=== PATIENT | female | born 1995 | race Caucasian/White ===

== ENCOUNTER 2018-04-06 11:28 | Emergency (ER) | payer OTHER ==
[~2018-04-06] VITALS: Ht 162.6 cm; Wt 65.8 kg
--- OUTSIDE RECORDS SUMMARY | ~2018-04-06 | XMS | Clinical Summary ---
Demographics + + + | Address | [address] | | | [place] [address] | + + + | Home Phone | | + + + | Preferred Language | Unknown | + + + | Marital Status | Single | + + + | Baptism Affiliation | Unknown | + + + | Race | Unknown | + + + | Ethnic Group | Unknown | + + + Author + + + | Author | [facility] | | | and [place] | + + + | Organization | [facility] | | | and [place] | + + + | Address | Unknown | + + + | Phone | Unavailable | + + + Support + + +---------+ + | Name | Relationship | Address | Phone | + + +---------+ + | Nelli Courtney | ECON | Unknown | | + + +---------+ + Care Team Providers + +------+ + | Care Door Clamper Name | Role | Phone | + +------+ + PP | Unavailable | + +------+ + Allergies Not on File Current Medications Not on file Active Problems Not on file Social History + +-------+ +--------+------+ | Tobacco Use | Types | Packs/Day | Years | Date | | | | | Used | | + +-------+ +--------+------+ | Never Assessed | | | | | + +-------+ +--------+------+ + + + | Sex Assigned at | Date Recorded | | | | + + + | Not on file | | + + + Plan of Treatment + + + + + | Health Maintenance | Due Date | Last Done | Comments | + + + + + | Vaccine: HPV (1 of 3 | | | | | - Female 3-dose | 6 | | | | series) | | | | + + + + + | Vaccine: | | | | | Dtap/Tdap/Td (1 - | 4 | | | | Tdap) | | | | + + + + + | Cervical Cancer | | | | | Screening (Pap) | 6 | | | + + + + + | Vaccine: Influenza | | | | | (#1) | 8 | | | + + + + + Results Not on filefrom Last 3 Months"
--- OUTSIDE RECORDS SUMMARY | ~2018-04-06 | XMS | Clinical Summary ---
Demographics + + + | Address | [address] | | | [place] [address] | + + + | Home Phone | | + + + | Preferred Language | Unknown | + + + | Marital Status | Single | + + + | Mu-Ism Affiliation | Unknown | + + + | Race | Unknown | + + + | Ethnic Group | Unknown | + + + Author + + + | Author | [facility] | | | and [place] | + + + | Organization | [facility] | | | and [...] Team Providers + +------+ + | Care Front Man Name | Role | Phone | + [...]
[~2018-04-06 11:28] MED LIST: MACROBID 100 M100 MG PO
== END 2018-04-06 11:40 | disposition home or self-care (01) ==
LOC: ED 11:28
DX: M25.572 Pain in left ankle and joints of left foot (principal)

== ENCOUNTER 2019-06-29 09:24 | Emergency (ER) | payer OTHER ==
[~2019-06-29] VITALS: Ht 160 cm; Wt 53.1 kg
[~2019-06-29 09:24] MED LIST changes: +CIPRO500 MG PO; +IBUPROFEN600 MG PO; +MIRALAX17 GM PO
--- OUTSIDE RECORDS SUMMARY | 2019-06-29 09:26 | XMS ---
PreManage Notification: JOYCE KNUTSON Security Ob/Gyn Events No recent Security Events currently on file CRITERIA MET - [facility] - Has Care Guidelines CARE PROVIDERS Theo Woods Internal Medicine: Pulmonary Disease 08/07/2018-Current PHONE: Unknown RENATA LEE Nurse Practitioner: Women's Health 03/12/2019-Current PHONE: [phone] Guidelines Source: [facility] Guidelines Date: 03/09/2019 Care Coordination: Mental health services are being provided by [facility].\T\nbsp; Please contact [facility] with mental health concerns.\T\nbsp; Kya/Joseph Carroll: \T\nbsp; Wilber: [phone]. Care History Medical/Surgical 08/07/2018 [facility] - Patient is currently established with [facility]. If patient is seen in the ED during business hours. Please contact CHWs at [facility]. Care Recommendation: This patient has had 5 or more Emergency Department visits in the last 12 months.\T\nbsp; Patient requires education on the scope and purpose of the ED as an acute care provider not a Primary Care Provider and should not be utilized for chronic conditions.\T\nbsp; These are guidelines and the provider should exercise clinical judgment when providing care. E.D. VISIT COUNT (12 MO.) 4 EDILSON Peters TOTAL 4 NOTE: Visits indicate total known visits. ED/UCC VISIT TRACKING (12 MO.) 06/29/2019 09:24 [facility] [place] TYPE: Emergency COMPLAINT: - RIGHT ELBOW PAIN/INJURY 03/09/2019 10:04 [facility] [place] TYPE: Emergency COMPLAINT: - LOWER LT DENTAL PAIN - MSE TO CLINIC DIAGNOSES: - Other specified disorders of teeth and supporting structures 08/06/2018 11:17 [facility] [place] TYPE: Emergency COMPLAINT: - POSS APPENDICITIS DIAGNOSES: - Other halfway (current) drug therapy - Allergy status to penicillin - Nicotine dependence, unspecified, uncomplicated - Unspecified abdominal pain 08/04/2018 17:03 [facility] [place] TYPE: Emergency COMPLAINT: - POSS KIDNEY INFECTION DIAGNOSES: - Nicotine dependence, unspecified, uncomplicated - Allergy status to penicillin - Tubulo-interstitial nephritis, 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
[2019-06-29] MEDS ORDERED: NEXPLANON68 MG SUB-Q (09:34)
== END 2019-06-29 11:40 | disposition home or self-care (01) ==
LOC: ED 09:24
DX: M25.521 Pain in right elbow (principal); F17.200 Nicotine dependence, unspecified, uncomplicated; Z88.0 Allergy status to penicillin
CPT/HCPCS: 73080; 99283-25; A9270

== ENCOUNTER 2019-07-02 17:18 | Emergency (ER) | payer OTHER ==
[~2019-07-02] VITALS: Ht 160 cm; Wt 56.7 kg
[~2019-07-02 17:18] MED LIST changes: +NEXPLANON68 MG SUB-Q
--- OUTSIDE RECORDS SUMMARY | 2019-07-02 17:20 | XMS ---
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 No recent Security Events currently on file CRITERIA MET - [facility] - Has Care Guidelines - [facility] - 2 Visits in 30 Days CARE PROVIDERS Theo Woods Internal Medicine: Pulmonary Disease 08/07/2018-Current PHONE: Unknown RENATA LEE Nurse Practitioner: Women's Health 03/12/2019-Current PHONE: [phone] Guidelines Source: [email or web address] Guidelines Date: 03/09/2019 Care Coordination: Mental health services are being provided by [email or web address].\T\nbsp; Please contact [email or web address] with mental health concerns.\T\nbsp; Kya/Joseph Carroll: \T\nbsp; Wilber: [phone]. Care History Medical/Surgical 08/07/2018 [facility] - Patient is currently established with [facility]. If patient is seen in the ED during business hours. Please contact CHWs at [facility]. Care Recommendation: This patient has had 5 [...] providing care. E.D. VISIT COUNT (12 MO.) 5 EDILSON Peters TOTAL 5 NOTE: Visits indicate total known visits. ED/UCC VISIT TRACKING (12 MO.) 07/02/2019 17:19 [facility] [place] TYPE: Emergency COMPLAINT: - RIGHT ELBOW PAIN, INJ 06/29/2019 09:24 [facility] [place] TYPE: Emergency COMPLAINT: - RIGHT ELBOW PAIN/INJURY DIAGNOSES: - Nicotine dependence, unspecified, uncomplicated - Pain in right elbow - Pain in right elbow - Allergy status to penicillin 03/09/2019 10:04 [facility] [place] TYPE: Emergency COMPLAINT: - LOWER LT DENTAL PAIN - MSE TO CLINIC DIAGNOSES: - Other specified disorders of teeth and supporting structures 08/06/2018 11:17 [facility] [place] TYPE: Emergency COMPLAINT: - POSS APPENDICITIS DIAGNOSES: - Other detention (current) drug therapy - Allergy status to [...] visits to display in this time frame [email or web address]
== END 2019-07-02 19:15 | disposition home or self-care (01) ==
LOC: ED 17:18
DX: S50.01XA Contusion of right elbow, initial encounter (principal); W22.8XXA Striking against or struck by other objects, initial encounter; F17.200 Nicotine dependence, unspecified, uncomplicated; Z88.0 Allergy status to penicillin; Z79.899 Other long term (current) drug therapy
CPT/HCPCS: 73080; 99283-25

== ENCOUNTER 2019-07-15 15:57 | Emergency (ER) | payer OTHER ==
[~2019-07-15] VITALS: Ht 160 cm; Wt 55.8 kg
--- OUTSIDE RECORDS SUMMARY | 2019-07-15 16:00 | XMS ---
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 Events No recent Security Events currently on file CRITERIA MET - [facility] - Has Care Guidelines - [facility] - 2 Visits in 30 Days CARE PROVIDERS Theo Woods Internal Medicine: Pulmonary Disease 08/07/2018-Current PHONE: Unknown RENATA LEE Nurse Practitioner: Women's Health 03/12/2019-Current PHONE: [phone] Guidelines Source: [facility] Guidelines Date: 03/09/2019 Care Coordination: Mental health services are being provided by [facility].\T\nbsp; Please contact [facility] with mental health concerns.\T\nbsp; Kya/Joseph Carroll: [phone]\T\nbsp; Wilber: [phone]. Care History Medical/Surgical 08/07/2018 [facility] - Patient is currently established with [facility]. If patient is seen in the ED during business hours. Please contact CHWs at [facility]. Care Recommendation: This patient has had 5 [...] providing care. E.D. VISIT COUNT (12 MO.) 6 EDILSON Peters TOTAL 6 NOTE: Visits indicate total known visits. ED/UCC VISIT TRACKING (12 MO.) 07/15/2019 15:58 [facility] [place] TYPE: Emergency COMPLAINT: - LOWER BACK PAIN, NON INJ 07/02/2019 17:19 [facility] [place] TYPE: Emergency COMPLAINT: - RIGHT ELBOW PAIN, INJ DIAGNOSES: - Allergy status to penicillin - Nicotine dependence, unspecified, uncomplicated - Striking against or struck by other objects, init encntr - Other terminal superintendent (current) drug therapy - Contusion of right elbow, initial encounter - Pain in right elbow 06/29/2019 09:24 [facility] [place] TYPE: Emergency [...] COMPLAINT: - POSS APPENDICITIS DIAGNOSES: - Other terminal superintendent (current) drug therapy - Allergy status to [...] visits to display in this time frame [email or web address]
== END 2019-07-15 16:16 | disposition home or self-care (01) ==
LOC: ED 15:57
DX: M54.5 Low back pain (principal)

== ENCOUNTER 2019-08-29 11:50 | Observation (INO) | payer OTHER ==
[~2019-08-29] VITALS: Ht 160 cm; Wt 50.9 kg
--- OUTSIDE RECORDS SUMMARY | 2019-08-29 11:52 | XMS ---
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 Care History Medical/Surgical 08/07/[address] [facility] - Patient is currently established [...] known visits. ED/UCC VISIT TRACKING (12 MO.) 08/29/2019 11:50 [facility] [place] TYPE: Emergency COMPLAINT: - ABD PAIN 07/15/2019 15:58 [facility] [place] TYPE: Emergency COMPLAINT: - LOWER BACK PAIN, NON INJ. MSE TO CLINIC DIAGNOSES: - Low back pain 07/02/2019 17:19 [facility] [place] TYPE: Emergency COMPLAINT: - RIGHT ELBOW PAIN, INJ DIAGNOSES: - Allergy status to penicillin - Nicotine dependence, unspecified, uncomplicated - Striking against or struck by other objects, init encntr - Other rn long term care (current) drug therapy - Contusion of right [...] specified disorders of teeth and supporting structures INPATIENT VISIT TRACKING (12 MO.) No inpatient visits to display in this time frame [email or web address]
--- NOTE | 2019-08-29 16:30 | NUR ---
Spoke with Marina. She is in for abd pain and saw Dr. Scruggs in the ER. States she will have her appendics out tomorrow. She is a mom of 3 small children, boyfriend Roberth, and mom Nelli are in the room. Pt. and boyfriend work at [employer] and have been on their 2 week holiday layoff. She is having financial issues and uses the food bank. Discussed second [employer] bank in town which she was not aware of. States she is getting an eviction notice and is having difficulty paying her utilities. Information given for [facility]. Gave her Rani Johnson's name and let her know I would place a referral for her for SDOC issues. Pt plans on going home with boyfriend when improved.
--- NOTE | 2019-08-29 16:42 | NUR ---
PATIENT ADMITTED TO MED SURG. IVF AND ABX INFUSING. PATIENT GIVEN 0.5MG OF IV DILAUDID FOR 6/10 RLQ/RFLANK PAIN. FAMILY IN ROOM WITH PATIENT.
--- NOTE | 2019-08-29 17:01 | NUR ---
CALL TO DR. GAVIRIA SO PATIENT CAN HAVE NICOTINE PATCH. DR. GAVIRIA WILL COME SEE PATIENT KIMBERLI.
--- NOTE | 2019-08-29 17:47 | NUR ---
PATIENT UP TO BATHROOM TO VOID, DOING PRESURGICAL WIPE DOWN.
--- NOTE | 2019-08-29 18:00 | NUR ---
PATIENT RESTING IN BED. VITAL SIGNS AND I&O DONE. CALL LIGHT WITHIN REACH.N O OTHER NEEDS AT THIS TIME
--- NOTE | 2019-08-29 19:44 | NUR ---
OVERCOILER HERE TO TAKE PT. PT WALKED TO BED, NO C/O PAIN. ABX PRACTICE DIRECTOR TO OR HANGING. CONSENT SIGNED
--- NOTE | 2019-08-29 21:06 | NUR ---
08/29/192105 Mary Mercado 2100: PT ARRIVES TO PACU WITH EYES CLOSED ON 6L O2 VIA MASK. RESP EVEN AND UNLABORED, REQUIRES SLIGHT CHIN TILT.
--- NOTE | 2019-08-29 21:57 | NUR ---
back to room from pacu, awake, painful abd area, 4 abd lap sites inplace, scds inplace
--- NOTE | 2019-08-29 22:20 | NUR ---
Pt returned to floor at 2150, awake, CPOX in place. Medicated w Dilaudid 0.6mg IV c/o 02/28 abd pain. [address] Pt had a lap appy and lap liliana. CDB encouraged. Pt tolerated ice and sipa of water. Repositined in bed. IVf rate decreased to 75ml/hr. significant other at bedside, abd with faint bowel tones
--- NOTE | 2019-08-29 22:59 | NUR ---
AWAKE, 2-3/10 ABD PAIN, RELIEF STATED. LAYING ON L SIDE, ABD LAP SITES WITH OLD DRAINAGE, ALEXANDRU. WATCHING TV, AWARE OF DUE TO VOID, DECLINES NEED TO VOID AT THIS TIME. SIGNIFICANT OTHER IN ROOM
--- NOTE | 2019-08-30 00:15 | NUR ---
coop with assessment, denies passing gas, abd hypoactive bowel tones, not void yet, tolerating fluids and ice chips, jelow, applesauce and crackers given, no n.v. c/o 02/28 abd pain, medicated with Dilaudid 0.5mg IV
--- NOTE | 2019-08-30 01:10 | NUR ---
V/S AND I&O TAKEN AND RECORDED. PATIENT WENT TO THE BATHROOM ASSISTED BY PRIMARY RN YI. PATIENT VOIDED 200ML.
--- NOTE | 2019-08-30 02:00 | NUR ---
resting, eyes closed, no c/o pain or s/sx distress, on room air, CPOX in place IVF infusing, turns self in bed, call ligth at bedside
--- NOTE | 2019-08-30 04:17 | NUR ---
Up to br with help, voided QS yellow urine, tolerated well, back to bed. IVF infusing, stated she burp, abd ss with old drainage, c/o 9/10 pain,medicated with Hydrocode 1 tab, repositions self in bed, SCDS were placed on earlier off again at her requests, CPOX in place, sats 100%, P71. tolerating crackers and jello
--- NOTE | 2019-08-30 05:47 | NUR ---
Pt had a lap liliana and lap appy. 4 ss lap sites with old drainage in place, pat, stated she did burp a couple times, denies passing rectal gas. And tender. Has been medicated with Dilaudid IV X2, Ibuprofen X1, HydrocodoneX1 with good pain relief. No n/v. Tolerating jellow, fluids. ice chips and crackers. Up to br X2, voiding QS. SBA/FWW. Cooperative. COPX in place. Significant other in room
--- NOTE | 2019-08-30 07:24 | NUR ---
0718: Report received from Christina LYNCH. Pt sleeping, call castillo within reach.
--- NOTE | 2019-08-30 08:16 | NUR ---
PATIENT UP TO VOID WITH SBA, X2 NORCO GIVEN FOR 9/10 ABD PAIN.
--- NOTE | 2019-08-30 08:17 | NUR ---
Patient was awake Ambulated to the bathroom, with standby Assist.breakfast was ordered, family in room . call light in reach fresh water given.
--- NOTE | 2019-08-30 08:37 | NUR ---
PT RESTING IN HER BED AND STATES SHE HAS 7/10 ABD PAIN THAT WAS JUST RECENTLY TREATED AND SHE STATES SHE BELIVES HER PAIN WILL COME DOWN SHORTLY. ABD SURGICAL SITES ALL APPEAR HEALTHY WITH STERI-STRIPS IN PLACE AND TWO OF THEM HAVE GAUZE AND TAPE COVERING. SCD'S ON AND RUNNING, CALL WALLACE WITHIN REACH. DR GAVIRIA TO THE BEDSIDE AT THIS TIME CHECKING IN ON THE PT.
--- NOTE | 2019-08-30 09:22 | NUR ---
CHW MET WITH PATIENT-PATIENT WAS SITTING UP EATING BREAKFAST WITH HER BOYFRIEND IN THE ROOM. CHW PROVIDED PATIENT WITH FOOD BANK RESOURCES IN THE AREA AND EXPRESSED THAT THE LOCAL [place]ES IN TOWN PROVIDE FOOD WELL. CHW PROVIDED [employer]UD "SECTION 8" HOUSING APPLICATION-PATIENT STATED SHE IS ALREADY ON THE WAITING LIST AND WAS PUT BACK ON IT 7 MONTHS AGO BECAUSE SHE COULDNT FIND A HOUSE BEFORE IN TIME. CHW PROVIDED [facility] MOVING FORWARD PROGRAM INFORMATION AND MENTIONED [facility] DOES ACCEPT APPLICATIONS BUT THERE IS A WAITING LIST. PATIENT STATED SHE WAS SATISFIED WITH THE RESOURCE INFORMATION AND STATED SHE HAD NO FURTHER QUESTIONS. CHW PROVIDED CONTACT [employer] FOR FUTURE CONTACT.
--- NOTE | 2019-08-30 09:59 | NUR ---
PT AMBULATED IN THE HALLS AND IS NOW BACK IN HER BED. PT NOW STATES HER PAIN IS UP TO AN 8/10, PT MEDICATED ORDERED. SEE EMAR. PT DENIES ANY OTHER PROBLEMS.
[2019-08-30] MEDS ORDERED: ONDANSETRON ODT4 MG PO (10:30)
[2019-08-30] MEDS ORDERED: IBU-200200 MG PO (10:30)
--- NOTE | 2019-08-30 10:31 | NUR ---
MED REC COMPLETE
--- NOTE | 2019-08-30 11:39 | NUR ---
Pt resting in her bed and states she is doing "okay". She continues to deny any problems or nausea after having eaten 70% of her breakfast.
--- NOTE | 2019-08-30 12:30 | NUR ---
Upon checking in on the pt she was lying in bed and grimicing. She states she was not doing anything and the pain increased to an 8. She is now resting and has ice in place and was medicated for pain. See emar.
--- NOTE | 2019-08-30 13:36 | NUR ---
Pt states her abd pain level is a 7/10, see emar. Pt states she had some nausea following eating about 20 percent of her lunch and stopped eating. She denies any nausea at this time. Incision sites appear unchanged.
--- NOTE | 2019-08-30 13:39 | NUR ---
Pt now states she will wait on pain medication once she was told that it will be a few hours before anything else can be given if she takes it now. Will continue to monitor.
--- NOTE | 2019-08-30 14:44 | NUR ---
Pt resting in her bed and is on her phone at this time. She states she is doing well at this time and that her pain is controled.
--- NOTE | 2019-08-30 15:29 | NUR ---
Pt called and states her pain in her abd is a 10. Pt medicated as ordered, ice remains in place.
--- NOTE | 2019-08-30 15:53 | NUR ---
TALKED WITH PT AND HER SIGN OTHER ABOUT HER DX, SHE STATES SHE UNDERSTANDS ABOUT HER PROCEDURE. WE TALKED ABOUT THE PAIN SCALE AND SPLINTING HER ABD WHEN SHE SNEEZES, BURPS OR GETS UP OR DOWN. SHE STATED THAT WOULD BE VERY HELPFUL. PT STATES UNDERSTANDING OF DX. PT DENIES OTHER QUESTIONS OR CONCERNS. WE TALKED ABOUT MAKING THE TRANSITION OF CARE FROM HOSPITAL TO HOME A SAFE AND SUCESSFUL ONE. SHE STATES UNDERSTANDING OF HER MEDS AND SIDE EFFECTS.
--- NOTE | 2019-08-30 16:15 | NUR ---
Pt now states her pain is a 4-5 while at rest but increases with movement or deep breathing. She states her pain is tolerable at this time.
--- NOTE | 2019-08-30 17:01 | NUR ---
DR GAVIRIA TO THE ROOM AND WAS CHECKING IN ON THE PT AND SEEING HOW SHE IS DOING.
--- NOTE | 2019-08-30 17:21 | NUR ---
Pt now ambulating in the halls with her SO.
--- NOTE | 2019-08-30 17:27 | CONS ---
[facility] [address] [place], [place] [address] Signed DATE OF CONSULTATION: 08/29/2019 CONSULTING PHYSICIAN: Reynaldo Gaviria MD. REQUESTING PHYSICIAN: Dr. Kim. PROBLEM: Chronic abdominal pain, known fecalith, right-sided abdominal pain, and progressive weight loss. 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 She has had poor appetite and oral intake over the past several months, having lost that count in an aggregate about 15 to 20 pounds. She saw Shilpa Lee, nurse practitioner, in July and given her symptoms, underwent abdomen CT which showed no sign of nephrolithiasis, which did likely demonstrate a fecalith. There is no sign of acute appendicitis on that study. I have reviewed it myself. The patient has presented to the emergency room and evaluated by Dr. Kim with right-sided abdominal pain without associated nausea or vomiting. Concomitantly, she notes episodic severe "heartburn." She denies any specific right upper abdominal or right subscapular pain. She has had poor enough appetite since she has had weight loss as previously noted and if she "gets stoned" and smoking marijuana, her appetite can rise enough that she will have oral intake. She has no associated dysphagia or hematemesis. PAST MEDICAL HISTORY: Significant for childbirth x3. She has not had surgery in the past. Her current pain is in the right mid abdomen slightly above McBurney point and below the right subcostal area. The patient has been on a Norplant type control method, which is recently expiring. Indeed, she started her menstrual period today. Lab studies ordered in the ER are still pending. Electronically Signed By: REYNALDO GAVIRIA MD 08/30/19 1727 PATIENT NAME: JOYCE KNUTSON CONSULTATION DATE OF : [birth year] REPORT #: [id number] PHYSICIAN: REYNALDO GAVIRIA MD PCP: SHILPA LEE REPORT IS CONFIDENTIAL AND NOT TO BE RELEASED WITHOUT AUTHORIZATION [facility] [address] [place], [place] [address] Signed PHYSICAL EXAMINATION: GENERAL: She is a relatively thin white woman, who does not look systemically toxic at this time. HEENT: Trachea is midline. CHEST: Shows normal respiratory excursion. There is no tachypnea. Pulses regular. ABDOMEN: Flat. She is quite thinner than normal. Palpation shows some tenderness in McBurney point and cephalad to it. There was no specific right subcostal tenderness. EXTREMITIES: Show no clubbing, cyanosis, or edema. LABORATORY DATA: Lab studies are pending. We will see if beta-hCG is obtained as well. ASSESSMENT: The patient has had progressive weight loss, poor appetite, known fecalith. No evidence of nephrolithiasis and no family history of biliary disease or typical biliary symptoms. On the other hand, she has a significant food aversion. Whether this is related to chronic inflammatory change to the appendix (chronic appendicitis) or not is uncertain. She may well have a reflux problem, which is incidentally an issue. Under the circumstances of her previous evaluation, I do not feel she needs a repeat CT scan per se, but it may be advisable to get an ultrasound of the gallbladder. Admission to the hospital is likely appropriate to allow for laparoscopic appendectomy for possible and probable chronic appendicitis related to the fecalith. Assessment of pelvic pathology in particular directed by beta-hCG would be appropriate as well. If gallbladder ultrasound showed gallstones, consideration will be made for concurrent cholecystectomy and appendectomy. We will review this with Dr. Kim. MD GURPREET Park/MICHELLL /[id number] cc: ERNIE Lucas Electronically Signed By: REYNALDO GAVIRIA MD 08/30/19 1727 PATIENT NAME: JOYCE KNUTSON CONSULTATION DATE OF : [birth year] REPORT #: [id number] PHYSICIAN: REYNALDO GAVIRIA MD PCP: SHILPA LEE REPORT IS CONFIDENTIAL AND NOT TO BE RELEASED WITHOUT AUTHORIZATION [address] [address] Signed Copies: SHLIPA LEE ~ Electronically Signed By: REYNALDO GAVIRIA MD 08/30/19 1727 PATIENT NAME: JOYCE KNUTSON CONSULTATION DATE OF : [birth year] REPORT #: [id number] PHYSICIAN: REYNALDO GAVIRIA MD PCP: SHILPA LEE REPORT IS CONFIDENTIAL AND NOT TO BE RELEASED WITHOUT AUTHORIZATION
--- NOTE | 2019-08-30 17:27 | OR ---
[facility] [address], [place] [address] Signed DATE OF OPERATION: 08/29/2019 SURGEON: Reynaldo Gaviria MD PREOPERATIVE DIAGNOSES: 1. Weight loss (chronic, 20 pounds), chronic right mid abdominal pain, and fecalith on recent CT scan. 2. Probable cjeha-ef-irihamh appendicitis. POSTOPERATIVE DIAGNOSES: 1. Chronic appendicitis with fecalith. 2. Chronic acalculous cholecystitis. PROCEDURES: 1. Laparoscopy with exploration of abdomen. 2. Laparoscopic appendectomy. 3. Laparoscopic cholecystectomy without cholangiogram. ANESTHESIA: General endotracheal; Fauzia Mello CRNA, and local 10 mL of 0.25% Marcaine with epinephrine. INDICATION: This 23-year-old white woman is a patient of MARLYS Moulton. She has had chronic persistent right abdominal pain. She has recently undergone a CT scan ( ) despite a normal urinalysis showing no evidence of kidney stones, but did show a fecalith. I have reviewed that study. The patient presented to the emergency room today and is evaluated by Dr. Aguirre with persistent, worsened, and markedly more severe right mid abdominal pain. Her tenderness is located just above McBurney point and not in the subcostal area per se. Her lab studies including liver enzymes and CBC are normal. Clinical examination suggests probable appendicitis, acute on chronic. It is notable that she has had weight loss and poor appetite for many weeks, which has resulted in a significant weight loss given her small body habitus. The only thing that allows for her appetite is smoking of marijuana intensively. She does not have hyperemesis syndrome of cannabis use, however. I have recommended laparoscopy with laparoscopic appendectomy for probable Electronically Signed By: REYNALDO GAVIRIA MD 08/30/19 1727 PATIENT NAME: JOYCE KNUTSON OPERATIVE REPORT DATE OF : [birth year] REPORT #: [id number] PHYSICIAN: REYNALDO GAVIRIA MD PCP: SHILPA LEE REPORT IS CONFIDENTIAL AND NOT TO BE RELEASED WITHOUT AUTHORIZATION [facility] [address], [place] [address] Signed gdovx-of-tobohpu appendicitis with fecalith and other indicated procedures. I discussed with the patient, her boyfriend, her mother in the presence of her children the risks of bleeding, infection, failure of diagnosis, missed diagnosis, need for other indicated procedures including possible gynecologic or even a biliary intervention. A gallbladder ultrasound was performed today to assess for stones and there were no stones on ultrasound. Understanding all this, she wished to proceed. FINDINGS: Appendix had mild chronic inflammation, but was certainly not dilated, enlarged, or suppurative. There was an unusual nodular change in the distal portion including the tip and possibly an enlarged small lymph node associated with it. Appendectomy was certainly performed without problem. The terminal ileum was entirely normal without sign of Crohn disease. There was no creeping fat. The small bowel was evaluated fully showing no Meckel diverticulum. The uterus was of normal size. Right adnexa showed normal ovary without cystic changes. Tube was normal as well. Gallbladder itself had a chronic inflammatory appearance, is certainly not acutely inflamed, however. Liver was normal. There were no nodular changes. No sign of fatty infiltration. Cholecystectomy was performed and the gallbladder upon opening showed chronic inflammation of mucosa, but no sign of stones or cholesterolosis. Cholangiogram was not performed. DESCRIPTION OF PROCEDURE: The patient was brought to the operating room, given a general endotracheal anesthetic. Sequential compression device stockings used. Preoperative antibiotic cefoxitin had been given. After satisfactory general endotracheal anesthesia, the abdomen was prepared with chlorhexidine solution and draped sterilely. An infraumbilical incision was made and using an open Juan J cannula technique, pneumoperitoneum was achieved to a level of 14 mmHg of carbon dioxide gas. Intraabdominal inspection showed no sign of ascites or carcinomatosis. The liver appeared normal. There was no sign of purulence or inflammatory change. An epigastric 12 mm port was placed and the laparoscope replaced to that site. Single hand manipulation of the cecum showed the appendix to be somewhat small, although mildly chronically inflamed, certainly not dilated, not suppurative, and not erythematous particularly. The terminal ileum appeared normal as manifested by a normal antimesenteric fat pad of Treves identifying well the terminal ileum. The right lower quadrant 5 mm port was placed with two-hand manipulation. The small bowel was evaluated starting at the antimesenteric fat pad of Treves showing a normal terminal ileum and more proximally as far as possible showing no sign of Meckel diverticulum. With various manipulations, the right adnexal structures could be identified, showing a normal tube and ovary. There was no cystic change. No sign of endometriosis that I could tell. Electronically Signed By: REYNALDO GAVIRIA MD 08/30/19 8087 PATIENT NAME: JOYCE KNUTSON OPERATIVE REPORT DATE OF : [birth year] REPORT #: [id number] PHYSICIAN: REYNALDO GAVIRIA MD PCP: SHILPA LEE REPORT IS CONFIDENTIAL AND NOT TO BE RELEASED WITHOUT AUTHORIZATION [address] [address] Signed Plans were then made for appendectomy. The appendix was elevated and a window created between the appendix and the cecum in the mesentery. An Endo DONOVAN stapling device was used to transect the appendix, flushed with the cecum. With various manipulations, a vascular load on the Endo-DONOVAN was used to transect the mesentery. The appendix was withdrawn into the infraumbilical port site and extracted and then removed. It was examined carefully and there was a nodular change of the tip of the appendix, which may represent a fecalith, but the possibility of neoplasm was not excluded at this point. There appeared to be a small lymph node associated with this near the tip of the appendix as well indicating chronic inflammation. This was passed for permanent pathology. Irrigation was undertaken of the right lower quadrant. Examination of the staple line showed it to be hemostatic. Attention was turned to the upper abdomen. The gallbladder was elevated cephalad and found to have a typical gallego dull appearance of chronic cholecystitis. Mindful that preoperative ultrasound showed no stones. Consideration was made perhaps her chronic pain and inability to tolerate oral intake was related to acalculous cholecystitis. Additionally, mindful of her family and the patient's intention that additional indicated procedures be performed if necessary, consideration was made for cholecystectomy. The liver itself appeared normal. An additional right midclavicular 5 mm port was placed and the right lower quadrant port used to elevate the gallbladder cephalad. Gallbladder was retracted laterally and using blunt electrocautery dissection, the cystic duct was easily dissected free. A clip was applied across gallbladder-cystic junction twice and the cystic duct divided. Further dissection revealed a small cystic artery, which was doubly clipped. The gallbladder was dissected free without problem, extracted after being placed in an endobag through the infraumbilical port site. The gallbladder was opened on the back table by the nurse, showing no sign of stones or cholesterolosis, but a chronic inflammatory change of the mucosa. Irrigation was undertaken of the subhepatic space. There was no sign of bile leak, bleeding, or other problems. Once irrigation fluid was completely suctioned free, examination was undertaken again of the right lower quadrant showing no sign of bleeding or other problems. The trocars removed under direct visualization showing no bleeding. The infraumbilical fascial incision was reapproximated with interrupted 0 Vicryl suture as was the epigastric port site given her thin body habitus. The skin was then closed with interrupted 3-0 Vicryl, Steri-Strips were applied. A 10 mL of 0.25% Marcaine with epinephrine was injected locally for postoperative analgesic benefit. The patient was ultimately extubated and transferred to recovery room in good condition having suffered no complications. Sponge, needle, and counts reported as correct x3. Electronically Signed By: REYNALDO GAVIRIA MD 08/30/19 1727 PATIENT NAME: JOYCE KNUTSON OPERATIVE REPORT DATE OF : [birth year] REPORT #: [id number] PHYSICIAN: REYNALDO GAVIRIA MD PCP: SHILPA LEE REPORT IS CONFIDENTIAL AND NOT TO BE RELEASED WITHOUT AUTHORIZATION [facility] [address] [place] [id number] Signed MD GURPREET Park/JAMIE /[id number] cc: MD hSilpa Cheng WHNP Copies: RADHA AGUIRRE MD, KATIE C WHNP ~ Electronically Signed By: REYNALDO GAVIRIA MD 08/30/19 1727 PATIENT NAME: JOYCE KNUTSON OPERATIVE REPORT DATE OF : [birth year] REPORT #: [id number] PHYSICIAN: REYNALDO GAVIRIA MD PCP: SHILPA LEE REPORT IS CONFIDENTIAL AND NOT TO BE RELEASED WITHOUT AUTHORIZATION
--- NOTE | 2019-08-30 18:15 | NUR ---
PT CALLED AND STATES HER ABD PAIN IS A 6 OR 7 AND SHE REQEUSTED AN MOTRIN. PT MEDICATED, SEE EMAR.
--- NOTE | 2019-08-30 18:39 | NUR ---
Pt ambulated two laps in the halls with her SO this shift. She has rated her pain from 4 on the low up to a 10 which have been treated with Motrin and [place] PO with acceptable results. 4 abd surgical site all appear healthy and have inplace steri-strips. Pt ate her breakfast well but had some nausea with eating her lunch and tolerated her dinner without any issues. Vital signs stable and her urine output is good. Bowel sounds active, she denies having any gas as of yet.
--- NOTE | 2019-08-30 20:15 | NUR ---
coop with assessment, IVF infusing w/o problems. 4Lap sites in place with old drainage. stated that she did just passed gas rectally. no bm, voiding clear yellow urine. independent in room. no c/o pain at this time
--- NOTE | 2019-08-30 21:33 | NUR ---
walked hallways up to nsg station around down to ccu entrance and back, tolerated well. c/o 5/10 abd pain. medicated with 1 norco. in bed watching tv, no n/v. call light at bedside, passing gas
--- NOTE | 2019-08-31 00:32 | NUR ---
resting, no distress, turns self in bed. call light at bedside, ivf infusing, scds off at her requests
--- NOTE | 2019-08-31 04:34 | NUR ---
Resting, eyes closed, turns self in bed, IVF infusing, no c/o pain. Independent in room, call light at bedside
--- NOTE | 2019-08-31 05:42 | NUR ---
repositioned in bed BP 93/56m denies feeling dizzy or lightheaded/ will recheck in one hour, aware to call prior to getting up. stated understanding. IVf infusing. voiding QS. Medicated wtih Ibuprofrn 600mg po c/p 01/29 abd pain
--- NOTE | 2019-08-31 06:13 | NUR ---
Pt resting at this time, walked hallways, tolerated well, was meidcated x1 with [place] x1 and Ibuprofen 600mg po x1 per c/o abd pain, with good pain relief. On room air, abd 4lap sites, stated passing rectal gas , burping. no bm, voiding qs yellow urine. IVF infusing, this am alina was 93/56, p65, pt asymptomatic will recheck in one hour. independent in room. tolerating diet well, no c/o n/v this shift. [facility], staes that she is going home today
--- NOTE | 2019-08-31 08:30 | NUR ---
SITTING UP IN BED VISITING WITH BOYFRIEND, IN GOOD SPIRITS, DENIES NAUSEA, OR NEED FOR PAIN MEDICATION AT THIS TIME, BREAKFAST JUST ARRIVED.
--- NOTE | 2019-08-31 11:08 | NUR ---
AMBULATING LOOP AROUND NURSES STATION, DENIES NAUSEA AFTER BREAKFAST, TAKING FLUIDS WELL.
[2019-08-31] MEDS ORDERED: IBUPROFEN600 MG PO (11:32)
[2019-08-31] MEDS ORDERED: TYLENOL EXTRA500 MG PO (11:32)
[2019-08-31] MEDS ORDERED: FAMOTIDINE20 MG PO (11:32)
[2019-08-31] MEDS ORDERED: NICOTINE PATCH1 EACH TD (11:34)
--- NOTE | 2019-08-31 13:00 | NUR ---
ATE 95% OF LUNCH, UP ABOUT ROOM INDEP. SHOWERED. STATES SHE WILL BE READY TO GO HOME SHORTLY, PHARMACY NOTIFIED.
--- NOTE | 2019-08-31 14:12 | NUR ---
DISCHARGE INSTRUCTIONS AGAIN REVIEWED AND PT, VERBALIZES UNDERSTANDING, NO QUESTIONS, DC TO HOME WITH BOYFRIEND AT THIS TIME.
--- NOTE | 2019-08-31 16:08 | NUR ---
Spoke with pt while she was walking in the [place] with boyfriend and children. Plans on going home today. Denies needs.
--- NOTE | 2019-09-01 18:50 | DS ---
[facility] [address] [facility] [place] [address] Signed ADMISSION DATE: 08/29/2019 DISCHARGE DATE: 08/31/2019 REASON FOR ADMISSION: This 23-year-old white woman has 3 children and works at [employer] and has had poor appetite and oral intake over the past several months, having lost nearly 20 pounds over time. She has her provider, Shilpa Lee in July and given her symptoms, she underwent a URO ABDOMEN CT, which showed no sign of nephrolithiasis, but did demonstrate a single fecalith. There was no acute appendicitis that could be seen. She presented to emergency room where she was evaluated by Dr. Kim with right-sided abdominal pain without associated nausea or vomiting. The patient additionally has some reflux symptoms unrelated to her current complaint. The patient did not have repeat CT scan, but did undergo a gallbladder ultrasound, which showed no stones. She is admitted for further evaluation and care with a high presumption of chronic appendicitis accounting for symptoms of the possibility of biliary disease (acalculous) was still considered. PERTINENT PHYSICAL EXAMINATION: GENERAL: Showed a thin white woman, who did not look systemically toxic. NECK: Trachea is midline. CHEST: Clear. HEART: Regular without murmur. ABDOMEN: Flat. Palpation showed tenderness at McBurney's point and somewhat cephalad to it. There is no specific right subcostal tenderness. LABORATORY STUDIES: Showed a normal white count and liver enzymes and amylase. Beta-hCG was negative. HOSPITAL COURSE: The patient was considered likely to have an acute episode of appendicitis and likely underlying chronic appendicitis related to fecalith. She underwent laparoscopy where the appendix was found to have a nodule at the distal portion, uncertain if this represented a fecalith or actually neoplasm. There was a single lymph node that was slightly enlarged associated with the tip of the appendix. The appendix did not look acutely inflamed, but was chronically inflamed. It was excised. Examination elsewhere showed no sign of terminal ileitis, no sign of Meckel's diverticulum, the right adnexa were normal, and no sign of ovarian cyst or other abnormality of the pelvic organs. The gallbladder itself had an appearance of chronic inflammation. Cholecystectomy was Electronically Signed By: REYNALDO GAVIRIA MD 09/01/19 7000 PATIENT NAME: JOYCE KNUTSON DISCHARGE SUMMARY DATE OF : [birth year] REPORT #: [id number] PHYSICIAN: REYNALDO GAVIRIA MD PCP: SHILPA LEE REPORT IS CONFIDENTIAL AND NOT TO BE RELEASED WITHOUT AUTHORIZATION [facility] [address] [place] [id number] Signed additionally performed, the cholangiogram was not performed. The gallbladder once opened showed chronic inflammation, but no sign of acute inflammation per se and certainly no sign of stones or cholesterolosis. The liver was normal. Her postoperative course was unremarkable. She had marked improvement and by day of discharge is tolerating regular diet, has minimal incisional pain, and wounds are healing well. Whether a chronic appendicitis with fecalith was the underlying cause of her symptoms or chronic acalculous cholecystitis remains to be determined and possibly . FOLLOWUP PLAN: She is to return to see me in approximately 4 weeks. She is permitted to return to work on September 15, 2019. She should lift no more than 20 pounds for the next 2 weeks otherwise however. She is encouraged to shower and to ambulate daily. Her diet is unrestricted. DISCHARGE MEDICATIONS: Will include: 1. Tylenol 1000 mg p.o. q.6 hours as needed for pain, #60. 2. Motrin 600 mg p.o. q.i.d. as needed for pain. 3. Pepcid 20 mg p.o. b.i.d. 4. Nicotine patch 21 mg topically daily. DISCHARGE DIAGNOSES: 1. Chronic right-sided abdominal pain with acute exacerbation, known fecalith based on CT scan with a normal gallbladder ultrasound. 2. Status post laparoscopy with laparoscopic appendectomy and laparoscopic cholecystectomy without cholangiogram. 3. Weight loss over the past 2 months. 4. Implanted control device (recently reapplied). Reynaldo Gaviria MD JM/MODL /[id number] Electronically Signed By: REYNALDO GAVIRIA MD 09/01/19 1850 PATIENT NAME: JOYCE KNUTSON DISCHARGE SUMMARY DATE OF : [birth year] REPORT #: [id number] PHYSICIAN: REYNALDO GAVIRIA MD PCP: SHILPA LEE REPORT IS CONFIDENTIAL AND NOT TO BE RELEASED WITHOUT AUTHORIZATION [address] [address] Signed cc: ERNIE Alberts MD Copies: SHILPA LEE WILLIAM S MD ~ Electronically Signed By: REYNALDO GAVIRIA MD 09/01/19 1850 PATIENT NAME: JOYCE KNUTSON DISCHARGE SUMMARY DATE OF : [birth year] REPORT #: [id number] PHYSICIAN: REYNALDO GAVIRIA MD PCP: SHILPA LEE REPORT IS CONFIDENTIAL AND NOT TO BE RELEASED WITHOUT AUTHORIZATION
--- NOTE | 2019-09-03 13:32 | NUR ---
ATTEMPTED TO CALL PT. NO ANSWER, MESSAGE LEFT. WILL ATTEMPT TOMORROW.
--- NOTE | 2019-09-04 14:13 | PATH ---
[facility] [address] [place], [place] [address] Signed SPECIMEN(S): A APPENDIX SPECIMEN(S): B GALLBLADDER SPECIMEN SOURCE: A. APPENDIX B. GALLBLADDER CLINICAL HISTORY: Appendicitis, abdominal pain, weight loss. FINAL PATHOLOGIC DIAGNOSIS: A. Appendix, appendectomy: - Benign appendiceal mucosa with areas of fibrous obliteration and serosal adhesions. B. Gallbladder, cholecystectomy: - Minimal chronic cholecystitis. DDF:emb:C2NR MICROSCOPIC EXAMINATION: Histologic sections of all submitted blocks are examined by light microscopy. These findings, together with the gross examination, support the pathologic diagnosis. GROSS DESCRIPTION: Two specimens are received in two containers, labeled "KS." A. The specimen, labeled "KS, appendix," is received in formalin and consists of Specimen: Appendix with mesoappendix. Dimensions: 7.1 cm in length by 0.7 cm in diameter with a 1.8 cm yellow fatty mesoappendix. Serosa: Crain with hyperemic subserosal vessels. Perforation: Not grossly identified. Inking: Staple line is inked black. Mucosa: Crain and smooth. Fecalith: Not grossly identified. Additional: Attached to the tip of the appendix there is a 0.7 cm crain-white firm nodule. Payroll [employer] sections are submitted in cassette (A1). B. The specimen, labeled "KS, gallbladder," is received in formalin and consists of Specimen: Previously opened gallbladder. PATIENT NAME: JOYCE KNUTSON PATHOLOGY DATE OF : [birth year] REPORT #: [id number] PHYSICIAN: FREEDOM GR PCP: RENATA LEE REPORT IS CONFIDENTIAL AND NOT TO BE RELEASED WITHOUT AUTHORIZATION [facility] [address] [facility] [place], [place] [address] Signed Dimensions: 7.7 x 2.3 x 1.8 cm. Serosa: Violaceous and smooth. Cystic Duct: Unobstructed. Calculi: Not grossly identified. Mucosa: Green and velvety. Wall thickness: 0.3 cm. Lymph node: No pericystic lymph nodes are grossly identified. Additional: None. Payroll Processor sections are submitted in cassette (B1). AM (under the direct supervision of a pathologist) The Gross Description was prepared using a voice recognition system. The report was reviewed for accuracy; however, sound-alike word errors, addition and/or deletions may occur. If there is any question about this report, please contact Client Services. PERFORMING LABORATORY: The technical component was performed by [employer], [address] [place] [address] (Audit Mgr: Kia Wang MD; CLIA# [id number]). Professional interpretation was performed by [employer], [facility], [address] [place] [phone] (Audit Mgr: Bensno Vang M.D.; CLIA#: [id number]). Diagnostician: Kev Ayala DO Pathologist Electronically Signed 09/04/2019 Copies: ~ PATIENT NAME: JOYCE KNUTSON PATHOLOGY DATE OF : [birth year] REPORT #: [id number] PHYSICIAN: FREEDOM GR PCP: RENATA LEE REPORT IS CONFIDENTIAL AND NOT TO BE RELEASED WITHOUT AUTHORIZATION
== END 2019-08-31 13:55 | disposition home or self-care (01) ==
LOC: ED 11:50 → MS 11:51 → ED 14:53 → CCU 14:53 → MS 08-31 13:55
PROVIDERS: ADMIT Surgery
PROC: 0DTJ4ZZ Resection of Appendix, Percutaneous Endoscopic Approach (ICD-10-PCS; principal; 2019-08-29 20:00)
PROC: 0FT44ZZ Resection of Gallbladder, Percutaneous Endoscopic Approach (ICD-10-PCS; 2019-08-29 20:00)
DX: K36 Other appendicitis (principal); K38.1 Appendicular concretions; K81.1 Chronic cholecystitis; F17.210 Nicotine dependence, cigarettes, uncomplicated; Z79.3 Long term (current) use of hormonal contraceptives; Z88.0 Allergy status to penicillin
CPT/HCPCS: 00840; 76705; 80053; 81001; 83690; 84703; 85025; 96361; 96375; 96376; 99285-25; A9270; G0378; J0330; J0694; J1100; J1170; J1885; J2300; J2405; J2704; J3010; J3475; J3480; J7030; J7060; J7121

== ENCOUNTER 2021-05-28 08:35 | Emergency (ER) | payer OTHER ==
[~2021-05-28] VITALS: Ht 160 cm; Wt 58.2 kg
[~2021-05-28 08:35] MED LIST changes: +FAMOTIDINE20 MG PO; +IBU-200200 MG PO; +NICOTINE PATCH1 EACH TD; +ONDANSETRON ODT4 MG PO; +TYLENOL EXTRA500 MG PO
[2021-05-28] MEDS ORDERED: HYDROXYZINE HCL25 MG PO (09:11)
[2021-05-28] MEDS ORDERED: CYMBALTA60 MG PO (09:11)
== END 2021-05-28 12:36 | disposition home or self-care (01) ==
LOC: ED 08:35
DX: R51.9 Headache, unspecified (principal); R41.3 Other amnesia; J45.909 Unspecified asthma, uncomplicated; F17.200 Nicotine dependence, unspecified, uncomplicated; Z88.0 Allergy status to penicillin; Z79.899 Other long term (current) drug therapy
CPT/HCPCS: 70450; 80053; 81001; 84443; 84703; 85025; 87088; 99284-25

== ENCOUNTER 2022-09-16 12:50 | Emergency (ER) | payer OTHER ==
[~2022-09-16] VITALS: Ht 160 cm; Wt 50.8 kg
[~2022-09-16 12:50] MED LIST changes: +CYMBALTA60 MG PO; +HYDROXYZINE HCL25 MG PO
[2022-09-16] MEDS ORDERED: CEPHALEXIN500 M1 PO (16:48)
== END 2022-09-16 17:15 | disposition home or self-care (01) ==
LOC: ED 12:50
DX: N12 Tubulo-interstitial nephritis, not specified as acute or chronic (principal); J45.909 Unspecified asthma, uncomplicated; F17.200 Nicotine dependence, unspecified, uncomplicated; Z88.0 Allergy status to penicillin; Z79.899 Other long term (current) drug therapy
CPT/HCPCS: 36415; 76830; 76856; 80053; 81001; 83690; 84703; 85025; 96365; 96375; 96376; 99284-25; A9270; J0696; J1170; J1885; J2405; J7030